=== PATIENT | male | born 2000 | race Two or more races ===

== ENCOUNTER 2020-08-16 12:11 | Emergency (ER) | payer SELFPAY ==
[~2020-08-16] VITALS: Ht 175.3 cm; Wt 63.5 kg
[2020-08-16 12:11] VITALS: BP 134/90
== END 2020-08-16 14:39 | disposition home or self-care (01) ==
LOC: ER 12:11
DX: N45.1 Epididymitis (principal)
CPT/HCPCS: 76870

== ENCOUNTER 2021-07-16 21:09 | Emergency (ER) | payer MEDICAID, OTHER ==
[~2021-07-16] VITALS: Ht 167.6 cm; Wt 59.0 kg
[2021-07-17 06:45] VITALS: BP 131/72
[2021-07-17] MEDS ORDERED: AMOX-277 PO (06:58)
[2021-07-17] MEDS ORDERED: TETANUS-DIPTH-ACEL PERTUSSIS 0.5ML SYR Tdap IM ONE (07:00)
[2021-07-17] MEDS ORDERED: AZITTAB PO (07:10)
[2021-07-17] MEDS ORDERED: AZITHROMYCIN 250 MG TAB PO ONE (07:15)
== END 2021-07-17 07:25 | disposition home or self-care (01) ==
LOC: ER 21:09
DX: S30.811A Abrasion of abdominal wall, initial encounter (principal); Z79.2 Long term (current) use of antibiotics; W55.03XA Scratched by cat, initial encounter; Y93.89 Activity, other specified; Y92.89 Other specified places as the place of occurrence of the external cause; Y99.8 Other external cause status
CPT/HCPCS: 90471; 90715